=== PATIENT | female | born 1990 | race Two or more races ===

== ENCOUNTER 2018-08-03 13:55 | Emergency (ER) | payer SELFPAY ==
[~2018-08-03] VITALS: Ht 160 cm; Wt 64.0 kg
[~2018-08-03 13:55] MED LIST: CEPH500C PO; HYDR-2758 PO; IBUP-1060 PO; LABE200T4 PO; OMEP20CA9 PO; ONDA4TAB10 SL; OXYC-323 PO; PROM25TA10 PO; TRAM-48 PO
[2018-08-03 14:49] LABS: BILIRUBIN,URINE NEGATIVE (NEG); CLARITY,URINE CLEAR; COLOR,URINE YELLOW; NITRITE,URINE NEGATIVE (NEG); PH,URINE 6.5; PROTEIN,URINE NEGATIVE (NEG-TRACE); UROBILINOGEN,URINE 0.2 mg/dL (0.2 mg/dL)
[2018-08-03 14:56] LABS: BACTERIA,URINE FEW /HPF (0-FEW); RBC,URINE OCC /HPF (0-2); SQUAMOUS EPITHELIAL CELL,UR MANY /LPF; WBC,URINE OCC /HPF (0-4)
[2018-08-03] MEDS ORDERED: IOHEXOL 300 MG/ML 100ML VIAL. IV ONE (15:15)
[2018-08-03] MEDS ORDERED: LIDO:MAALOX 1:1 20 ML SINGLE DOSE. SWSW ONE (15:15)
[2018-08-03 15:20] LABS: BASO # 0.1 x10^3/uL (0.0-0.2); BASO % 0 % (0-3); EOS # 0.2 x10^3/uL (0.0-0.7); EOS % 2 % (0-3); HEMATOCRIT 41.3 % (36.0-47.0); HEMOGLOBIN 14.3 g/dL (12.0-15.5); LYMPH # 1.1 x10^3/uL (1.0-4.8); LYMPH % 8 % (24-48); MEAN CORPUSCULAR HEMOGLOBIN 31 pg (25-35); MEAN CORPUSCULAR HGB CONC 35 g/dL (31-37); MEAN CORPUSCULAR VOLUME 88 fL (79-100); MONO # 0.5 x10^3/uL (0.0-1.1); MONO % 4 % (0-9); NEUT # 11.2 x10^3uL (1.8-7.7); NEUT % 86 % (31-73); PLATELET COUNT 222 x10^3/uL (140-400); RED BLOOD COUNT 4.67 x10^6/uL (3.50-5.40); RED CELL DISTRIBUTION WIDTH 13.2 % (11.5-14.5); WHITE BLOOD COUNT 13.1 x10^3/uL (4.0-11.0)
[2018-08-03 15:28] LABS: CALCIUM 8.6 mg/dL (8.5-10.1); CREATININE 0.5 mg/dL (0.6-1.0); GFR 149.1; POTASSIUM 3.8 mmol/L (3.5-5.1)
[2018-08-03] MEDS ORDERED: CONTRAST GIVEN. MC PRN (15:30)
[2018-08-03 15:33] LABS: ALBUMIN 4.1 g/dL (3.4-5.0); ALBUMIN/GLOBULIN RATIO 1.1 (1.0-1.7); TOTAL PROTEIN 7.7 g/dL (6.4-8.2)
[2018-08-03 15:41] LABS: % BANDS 9 % (0-9); % EOS 5 % (0-5); % LYMPHS 9 % (24-48); % SEGS 77 % (35-66)
[2018-08-03 15:43] LABS: PLT ESTIMATE ADEQUATE (ADEQUATE)
--- NOTE | 2018-08-03 15:50 | EKG ---
[facility] [address] [place] [address] Test Date: 2018-08-03 Test Time: 15:35:30 Pat Name: ADDISON CROCKETT Department: Room: Gender: F Radio Personality: : 1990 Requested By: HERMINIA LEE Order Number: [id number] Reading MD: Measurements Intervals [place] Rate: 80 P: 49 [place]: 154 QRS: 59 QRSD: 92 T: 38 QT: 376 QTc: 437 Interpretive Statements SINUS RHYTHM NORMAL ECG No previous ECG available for comparison
--- NOTE | 2018-08-03 16:05 | PHYS DOC ---
Past Medical History Past Medical History: No Pertinent History, Pancreatitis Additional Past Medical Histor: high cholesterol Past Surgical History: Tubal ligation Alcohol Use: None Drug Use: None Adult General Chief Complaint Chief Complaint: ABDOMINAL PAIN HPI HPI 28-year-old female presents to emergency room for evaluation of diffuse upper abdominal pain. She reports symptoms started overnight. She had 2 episodes of emesis. She states the pain certainly epigastric area and radiates up to the center of her chest and across her upper abdomen. [facility] had a biopsy that was negative. At that time they took her off her omeprazole. She denies fevers. Denies shortness of breath. Cholecystectomy 5 months ago. Review of Systems Review of Systems Constitutional: Denies fever or chills [] Eyes: Denies change in visual acuity, redness, or eye pain [] HENT: Denies nasal congestion or sore throat [] Integument: Denies rash or skin lesions [] Neurologic: Denies headache, focal weakness or sensory changes [] Endocrine: Denies polyuria or polydipsia [] All other systems were reviewed and found to be within normal limits, except as documented in this note. Current Medications Current Medications Current Medications Medications (Trade) Dose Ordered Sig/Yoly Start Time Stop Time Status Last Admin Dose Admin Info (CONTRAST GIVEN -- Rx MONITORING) 1 each PRN DAILY PRN 08/03/18 15:30 08/05/18 15:29 Iohexol (Omnipaque 300 Mg/ml) 75 ml 1X ONCE 08/03/18 15:15 08/03/18 15:16 DC 08/03/18 15:15 75 ML Multi-Ingredient Mouthwash/Gargle (Gi Cocktail) 20 ml 1X ONCE 08/03/18 15:15 08/03/18 15:16 DC 08/03/18 15:28 20 ML Sodium Chloride 1,000 ml @ 1,000 mls/hr 1X ONCE 08/03/18 16:15 08/03/18 17:14 DC 08/03/18 16:23 1,000 MLS/HR Allergies Allergies Allergies Coded Allergies Type Severity Reaction Last Updated Verified No Known Drug Allergies 07/22/14 No Physical Exam Physical Exam Constitutional: Well developed, well nourished, TEARFUL, non-toxic appearance. [ ] Cardiovascular:Heart rate regular rhythm, no murmur [] Lungs & Thorax: Bilateral breath sounds clear to auscultation [] Abdomen: Bowel sounds normal, soft, UPPER ABD DIFFUSELY TENDER, no masses, no pulsatile masses. [] Skin: Warm, dry, no erythema, no rash. [] Extremities: No tenderness, no cyanosis, no clubbing, ROM intact, no edema. [] Neurologic: Alert and oriented X 3, normal motor function, normal sensory function, no focal deficits noted. [] Psychologic: Affect normal, judgement normal, mood normal. [] Current Patient Data Vital Signs Vital Signs Date Time Temp Pulse Resp B/P (MAP) Pulse Ox O2 Delivery O2 Flow Rate FiO2 08/03/18 14:10 99.9 88 14 124/68 (86) 98 Room Air 99.9 Lab Values Laboratory Tests Test 08/03/18 14:15 08/03/18 14:22 08/03/18 15:15 08/03/18 16:16 Urine Collection Type Unknown Urine Color Yellow Urine Clarity Clear Urine pH 6.5 Urine Specific [place] 1.010 Urine Protein Negative mg/dL (NEG-TRACE) Urine Glucose (UA) Negative mg/dL (NEG) Urine Ketones (Stick) Negative mg/dL (NEG) Urine Blood Negative (NEG) Urine Nitrite Negative (NEG) Urine Bilirubin Negative (NEG) Urine Urobilinogen Dipstick 0.2 mg/dL (0.2 mg/dL) Urine Leukocyte Esterase Negative (NEG) Urine RBC Occ /HPF (0-2) Urine WBC Occ /HPF (0-4) Urine Squamous Epithelial Cells Many /LPF Urine Bacteria Few /HPF (0-FEW) POC Urine HCG, Qualitative Hcg negative (Negative) White Blood Count 13.1 x10^3/uL (4.0-11.0) H Red Blood Count 4.67 x10^6/uL (3.50-5.40) Hemoglobin 14.3 g/dL (12.0-15.5) Hematocrit 41.3 % (36.0-47.0) Mean Corpuscular Volume 88 fL (79-100) Mean Corpuscular Hemoglobin 31 pg (25-35) Mean Corpuscular Hemoglobin Concent 35 g/dL (31-37) Red Cell Distribution Width 13.2 % (11.5-14.5) Platelet Count 222 x10^3/uL (140-400) Neutrophils (%) (Auto) 86 % (31-73) H Lymphocytes (%) (Auto) 8 % (24-48) L Monocytes (%) (Auto) 4 % (0-9) Eosinophils (%) (Auto) 2 % (0-3) Basophils (%) (Auto) 0 % (0-3) Neutrophils # (Auto) 11.2 x10^3uL (1.8-7.7) H Lymphocytes # (Auto) 1.1 x10^3/uL (1.0-4.8) Monocytes # (Auto) 0.5 x10^3/uL (0.0-1.1) Eosinophils # (Auto) 0.2 x10^3/uL (0.0-0.7) Basophils # (Auto) 0.1 x10^3/uL (0.0-0.2) Segmented Neutrophils % 77 % (35-66) H Band Neutrophils % 9 % (0-9) Lymphocytes % 9 % (24-48) L Eosinophils % 5 % (0-5) Platelet Estimate Adequate (ADEQUATE) Sodium Level 140 mmol/L (136-145) Potassium Level 3.8 mmol/L (3.5-5.1) Chloride Level 103 mmol/L (98-107) Carbon Dioxide Level 25 mmol/L (21-32) Anion Gap 12 (6-14) Blood Urea Nitrogen 10 mg/dL (7-20) Creatinine 0.5 mg/dL (0.6-1.0) L Estimated GFR (Cockcroft-Gault) 149.1 BUN/Creatinine Ratio 20 (6-20) Glucose Level 94 mg/dL (70-99) Calcium Level 8.6 mg/dL (8.5-10.1) Total Bilirubin 1.0 mg/dL (0.2-1.0) Aspartate Amino Transferase (AST) 36 U/L (15-37) Alanine Aminotransferase (ALT) 52 U/L (14-59) Alkaline Phosphatase 85 U/L (46-116) Total Protein 7.7 g/dL (6.4-8.2) Albumin 4.1 g/dL (3.4-5.0) Albumin/Globulin Ratio 1.1 (1.0-1.7) Lipase 91 U/L (73-393) POC Troponin I 0.00 ng/ml (<0.08) Laboratory Tests 08/03/18 15:15 Laboratory Tests 08/03/18 15:15 EKG EKG [EKG rate 81, normal sinus rhythm, no STEMI ] Radiology/Procedures Radiology/Procedures [PROCEDURE: CT ABD PELV W/ IV CONTRST ONLY EXAM: Abdomen and pelvis CT with intravenous contrast. HISTORY: Pain. TECHNIQUE: Computed tomographic images of the abdomen and pelvis were obtained following the administration of 75 cc Omnipaque 300 intravenous contrast. Multiplanar reformatting was performed. *One or more of the following individualized dose reduction techniques were utilized for this examination: 1. Automated exposure control. 2. Adjustment of the mA and/or kV according to patient size. 3. Use of iterative reconstruction technique. COMPARISON: 11/12/2016. FINDINGS: Evaluation of the lower thorax is unremarkable. The liver is upper normal in size. The gallbladder is surgically absent. There is common bile duct dilatation likely due to reservoir effect status post cholecystectomy. No obstructing lesion is seen at the level of the ampulla. The pancreas, spleen and adrenal glands are unremarkable. The kidneys are unremarkable. The appendix is normal in appearance. There is no abnormal bowel wall thickening or dilatation. The uterus is unremarkable. There are multiple bilateral ovarian follicles. There is a peripherally enhancing right ovarian cyst measuring 1.9 cm, likely an involuting or hemorrhagic cyst. There is no significant pelvic free fluid. There is no lymphadenopathy. There are calcified bilateral buttock granulomas. There is no suspicious osseous lesion. IMPRESSION: 1. 1.9 cm suspected involuting or hemorrhagic right ovarian cyst. 2. Mild common bile duct dilatation likely due to reservoir effect status post cystectomy. 3. Otherwise, relatively unremarkable abdomen and pelvis CT. Electronically signed by: Teresa Nguyen MD (08/03/2018 4:00 PM) [place] [id number] ]PROCEDURE: CHEST PA & LATERAL EXAM: Chest, 2 views. HISTORY: Chest pain. COMPARISON: 03/21/2015. FINDINGS: Frontal and lateral views of the chest are obtained. There is linear opacity within the right mid thorax. There is no consolidation, pleural effusion or pneumothorax. The heart is normal in size. IMPRESSION: Linear opacity within the right mid thorax likely due to atelectasis. The possibility of interstitial infiltrate is not excluded. Electronically signed by: Teresa Nguyen MD (08/03/2018 4:02 PM) [facility] [place] Course & Med Decision Making Course & Med Decision Making Pertinent Labs and Imaging studies reviewed. (See chart for details) [Signs stable, patient is afebrile and nontoxic in appearance. CT abdomen and pelvis is negative for acute pathology. Concern for developing pneumonia on chest x-ray, will start patient on azithromycin pack. She has had some intermittent cough. She does have close follow-up, has a GI doctor whom she will call to reschedule a follow-up appointment. EKG is normal sinus rhythm, cardiac enzymes are negative. Patient is stable for discharge home, strict return precautions discussed.] Dragon Disclaimer Dragon Disclaimer This electronic medical record was generated, in whole or in part, using a voice recognition dictation system. Departure Departure Impression: Primary Impression: Epigastric pain Disposition: 01 HOME, SELF-CARE Condition: STABLE Referrals: NO PCP (PCP) Patient Instructions: Abdominal Pain Scripts Azithromycin (AZITHROMYCIN PACKET) 1 Gm Packet 1 PACKET PO ONCE, #1 PACKET 0 Refills Prov: HERMINIA LEE APRN 08/03/18 HERMINIA LEE APRN Aug 03, 2018 16:05
[2018-08-03] MEDS ORDERED: IV NORMAL SALINE 1000ML BAG 1,000 ML IV ONE (16:15)
[2018-08-03 17:00] VITALS: BP 103/54
[2018-08-03] MEDS ORDERED: AZIT1PAC9 PO (17:15)
== END 2018-08-03 18:08 | disposition home or self-care (01) ==
LOC: ER 13:55
DX: R10.13 Epigastric pain (principal); R10.11 Right upper quadrant pain; R10.12 Left upper quadrant pain; E78.00 Pure hypercholesterolemia, unspecified; Z98.51 Tubal ligation status; Z90.49 Acquired absence of other specified parts of digestive tract
CPT/HCPCS: 36415; 71046; 74177; 80053; 81001; 81025; 83690; 84484; 85007; 85025; 93005; 96360; 96361; 99285; J7030; Q9967

== ENCOUNTER 2019-02-15 03:26 | Emergency (ER) | payer SELFPAY ==
[~2019-02-15] VITALS: Ht 152.4 cm; Wt 61.2 kg
[~2019-02-15 03:26] MED LIST changes: +AZIT1PAC9 PO; -HYDR-2758 PO; +HYDR-2761 PO; +OMEP20CA10 PO; -OMEP20CA9 PO; -OXYC-323 PO; +OXYC1TAB15 PO
[2019-02-15 03:30] VITALS: BP 135/66
[2019-02-15] MEDS ORDERED: ORPH100T PO (04:48)
[2019-02-15] MEDS ORDERED: HYDR-3164 PO (04:48)
[2019-02-15] MEDS ORDERED: LIDO700A39 TP (04:48)
[2019-02-15] MEDS ORDERED: PRED20TA PO (04:48)
--- NOTE | 2019-02-15 04:48 | PHYS DOC ---
Past Medical History Past Medical History: High Cholesterol, Pancreatitis Additional Past Medical Histor: high cholesterol Past Surgical History: Cholecystectomy, , Tubal ligation Alcohol Use: None Drug Use: None Adult General Chief Complaint Chief Complaint: BACK PAIN OR INJURY HPI HPI Patient is a 28 year old female who presents for evaluation of back pain. 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 Patient states that the pain is located in her bilateral lower back, is constant, sharp, and rated 10/10. Patient states that the pain is worse with movement and nothing alleviates the pain. Patient states that the pain is taking her breath away. Patient reports radiation of the pain down both of her legs. Patient denies bowel and bladder incontinence. Review of Systems Review of Systems Constitutional: Denies fever or chills. Eyes: Denies change in visual acuity, or eye pain. HENT: Denies nasal congestion or sore throat. Respiratory: Denies cough. Reports shortness of breath secondary to sharp pain. Cardiovascular: Denies chest pain and palpitations. GI: Denies abdominal pain, nausea, vomiting, diarrhea. : Denies dysuria or hematuria. Musculoskeletal: Denies joint pain. Reports back pain. Integument: Denies rash or skin lesions. Neurologic: Denies headache, focal weakness. Complete systems were reviewed and found to be within normal limits, except as documented in this note. Current Medications Current Medications Current Medications Medications (Trade) Dose Ordered Sig/Yoly Start Time Stop Time Status Last Admin Dose Admin Acetaminophen/ Hydrocodone Bitart (Lortab 5/325) 1 tab 1X ONCE 02/15/19 05:00 02/15/19 05:01 02/15/19 04:32 1 TAB Cyclobenzaprine HCl (Flexeril) 10 mg 1X ONCE 02/15/19 05:00 02/15/19 05:01 02/15/19 04:32 10 MG Dexamethasone (Decadron) 10 mg 1X ONCE 02/15/19 05:00 02/15/19 05:01 02/15/19 04:32 10 MG Ketorolac Tromethamine (Toradol 30mg Vial) 30 mg 1X ONCE 02/15/19 05:00 02/15/19 05:01 02/15/19 04:31 30 MG Lidocaine (Lidoderm) 1 patch 1X ONCE 02/15/19 05:00 4/3/19 05:01 Allergies Allergies Allergies Coded Allergies Type Severity Reaction Last Updated Verified No Known Drug Allergies 07/22/14 No Physical Exam Physical Exam Constitutional: Well developed, well nourished, in painful distress, crying during examination. HENT: Normocephalic, atraumatic,oropharynx moist. Eyes: PERRL, conjunctiva without erythema. Neck: Normal range of motion, no tenderness, supple. Cardiovascular: Heart rate regular rhythm, no murmur. Lungs & Thorax: Bilateral breath sounds clear to auscultation. Abdomen: Soft, no tenderness. Skin: Warm, dry, no rash. Back: Tenderness of bilateral paralumbar area on palpation. Decreased range of motion secondary to pain. Extremities: No tenderness, ROM intact. Neurologic: Alert and oriented X 3, no focal deficits noted. Sensation is intact. Psychologic: Affect normal. Speech normal. Current Patient Data Vital Signs Vital Signs Date Time Temp Pulse Resp B/P (MAP) Pulse Ox O2 Delivery O2 Flow Rate FiO2 02/15/19 04:32 98 Room Air 02/15/19 03:30 98.2 63 18 135/66 (89) 98.2 EKG EKG [] Radiology/Procedures Radiology/Procedures [] Course & Med Decision Making Course & Med Decision Making Patient is a 28 year old female who presents for evaluation of back pain. Imaging is not indicated at this time as patient did not sustain any trauma. Patient treated with a lidocaine patch, Ketorolac, Hydrocodone, Dexamethasone, and Cyclobenzaprine with improvement of pain. Patient stable for discharge with outpatient follow-up with PCP. Discussed findings and plan with patient and family, who acknowledge understanding and agreement. Dragon Disclaimer Dragon Disclaimer This electronic medical record was generated, in whole or in part, using a voice recognition dictation system. Departure Departure Impression: Primary Impression: Back pain Additional Impression: Sciatica Disposition: HOME, SELF-CARE Condition: STABLE Referrals: VANNESA CM DO (PCP) BELEM TATE MD Patient Instructions: Back Pain, Adult, [id number], Sciatica, [id number] Scripts Prednisone (PREDNISONE) 20 Mg Tablet 2 TAB PO DAILY, #8 TAB Start this medication tomorrow, 02/16/19 Prov: NELY CRUZ DO 02/15/19 Orphenadrine Citrate (ORPHENADRINE CITRATE) 100 Mg Tablet.er 100 MG PO BID, #14 Prov: NELY CRUZ DO 02/15/19 Hydrocodone/Apap 5-325 (NORCO 5-325 TABLET) 1 Each Tablet 1 TAB PO PRN Q6HRS PRN for PAIN, #14 TAB 0 Refills Prov: NELY CRUZ DO 02/15/19 Lidocaine (Lidocaine) 1 Each Adh..patch 1 EACH TP Q12HR, #10 PATCH Keep patch on for 12 hours then remove for 12 hours Prov: NELY CRUZ DO 02/15/19 Problem Qualifiers Primary Impression: Back pain Back pain location: low back pain Chronicity: acute Back pain laterality: bilateral Sciatica presence: with sciatica Sciatica laterality: bilateral sciatica Qualified Codes: M54.42 - Lumbago with sciatica, left side; M54.41 - Lumbago with sciatica, right side Additional Impression: Sciatica Laterality: bilateral Qualified Codes: M54.31 - Sciatica, right side; M54.32 - Sciatica, left side NELY CRUZ DO Feb 15, 2019 04:48
[2019-02-15] MEDS ORDERED: KETOROLAC 30 MG/ML VIAL. IM ONE (05:00)
[2019-02-15] MEDS ORDERED: LIDOCAINE (700MG/PATCH) PATCH. TD ONE (05:00)
[2019-02-15] MEDS ORDERED: CYCLOBENZAPRINE 10 MG TABLET. PO ONE (05:00)
[2019-02-15] MEDS ORDERED: DEXAMETHASONE 4 MG TABLET PO ONE (05:00)
[2019-02-15] MEDS ORDERED: HYDROcodone/APAP 5/325MG 1 TAB TABLET PO ONE (05:00)
== END 2019-02-15 05:10 | disposition home or self-care (01) ==
LOC: ER 03:26
DX: M54.41 Lumbago with sciatica, right side (principal); M54.42 Lumbago with sciatica, left side; E78.00 Pure hypercholesterolemia, unspecified; Z90.49 Acquired absence of other specified parts of digestive tract; Z98.890 Other specified postprocedural states; Z98.51 Tubal ligation status
CPT/HCPCS: 96372; 99284; J1885; J8540

== ENCOUNTER 2019-12-15 00:08 | Emergency (ER) | payer SELFPAY ==
[~2019-12-15] VITALS: Ht 165.1 cm; Wt 63.6 kg
[~2019-12-15 00:08] MED LIST changes: +HYDR-3164 PO; +LIDO700A21 TP; -OMEP20CA10 PO; +OMEP20CA16 PO; +ORPH100T PO; +PRED20TA PO
[2019-12-15 00:18] VITALS: BP 119/71
[2019-12-15] MEDS ORDERED: DEXAMETHASONE SOD PHOS 20 MG/5 ML VIAL. PO ONE (01:00)
[2019-12-15] MEDS ORDERED: NAPR-514 PO (01:00)
--- NOTE | 2019-12-15 01:02 | PHYS DOC ---
Past Medical History Past Medical History: High Cholesterol, Pancreatitis Additional Past Medical Histor: high cholesterol (SILVANA GUILLEN APRN) Past Surgical History: Cholecystectomy, , Tubal ligation (SILVANA GUILLEN APRN) Alcohol Use: None Drug Use: None (SILVANA GUILLEN APRN) Attending Signature I have participated in the care of this patient and I have reviewed and agree with all pertinent clinical information above including history, exam, and recommendations. (HUSAM SEALS MD) Adult General Chief Complaint Chief Complaint: BACK PAIN OR INJURY HPI HPI Patient is a 29 year old female, accompanied by her , who presents to the emergency department with complaints of nasal congestion, chest congestion, chills, headache, and fatigue for the last 3 days. Patient states that it hurts inside of her lungs when she takes a deep breath. She denies any fever or cough. Patient also denies any nausea, vomiting, diarrhea, or abdominal pain. She currently rates her pain 8 out of 10 on the pain scale and reports that it is aching sensation inside of her head, denies any alleviating factors. Patient denies any known recent ill contacts. The [employer] creative strategist line was used to speak with the patient as she is Georgian speaking only. All other ROS is neg unless otherwise noted in HPI. (SILVANA GUILLEN APRN) Review of Systems Review of Systems See Above (SILVANA GUILLEN APRN) Current Medications Current Medications Current Medications Medications (Trade) Dose Ordered Sig/Yoly Start Time Stop Time Status Last Admin Dose Admin Dexamethasone Sodium Phosphate (Decadron) 10 mg 1X ONCE 12/15/19 01:00 12/15/19 01:01 DC 12/15/19 00:52 10 MG (HUSAM SEALS MD) Allergies Allergies Allergies Coded Allergies Type Severity Reaction Last Updated Verified No Known Drug Allergies 07/22/14 No (HUSAM SEALS MD) Physical Exam Physical Exam See Above Constitutional: Well developed, well nourished, no acute distress, ill appearance HENT: Normocephalic, atraumatic, bilateral external ears normal, bilateral TMs normal, posterior pharynx normal oropharynx moist, nose congested with erythema and edema of the nasal turbinates bilaterally Eyes: PERRLA, conjunctiva injected bilaterally, no discharge. [] Neck: Normal range of motion, no stridor. [] Cardiovascular:Heart rate regular rhythm, no murmur [] Lungs & Thorax: Bilateral breath sounds clear to auscultation, Respirations even and unlabored, no retractions, no respiratory distress Skin: Warm, dry, no erythema, no rash. [] Back: No tenderness Extremities: No cyanosis, ROM intact Neurologic: Alert and oriented X 3, no focal deficits noted. [] Psychologic: Affect normal, judgement normal, mood normal. (SILVANA GUILLEN APRN) Current Patient Data Vital Signs Vital Signs Date Time Temp Pulse Resp B/P (MAP) Pulse Ox O2 Delivery O2 Flow Rate FiO2 12/15/19 00:18 98.7 67 16 119/71 (87) 99 Room Air 98.7 (HUSAM SEALS MD) EKG EKG [] (SILVANA GUILLEN APRN) Radiology/Procedures Radiology/Procedures [] (SILVANA GUILLEN APRN) Course & Med Decision Making Course & Med Decision Making Pertinent Labs and Imaging studies reviewed. (See chart for details) [] (SILVANA GUILLEN APRN) Dragon Disclaimer Dragon Disclaimer This electronic medical record was generated, in whole or in part, using a voice recognition dictation system. (SILVANA GUILLEN APRN) Departure Departure Impression: Primary Impression: Influenza-like illness Disposition: HOME, SELF-CARE Condition: STABLE Referrals: VANNESA CM DO (PCP) Patient Instructions: Influenza, Adult, [id number] Additional Instructions: Tylenol as needed for fever. Increase clear fluids and rest. Diet as tolerated. Recommend use of [id number] flu medications as needed for relief of your symptoms. Follow up with your primary care doctor if symptoms persist, return to the ER symptoms worsen. Scripts Naproxen (NAPROXEN) 500 Mg Tablet 1 TAB PO BID PRN for PAIN for 10 Days, #20 TAB 0 Refills Prov: SILVANA GUILLEN APRN 12/15/19 SILVANA GUILLEN APRN Dec 15, 2019 01:02 HUSAM SEALS MD Dec 15, 2019 01:49
== END 2019-12-15 01:10 | disposition home or self-care (01) ==
LOC: ER 00:08
DX: R09.81 Nasal congestion (principal); R09.89 Other specified symptoms and signs involving the circulatory and respiratory systems; R51 Headache; R68.83 Chills (without fever); R53.83 Other fatigue; E78.00 Pure hypercholesterolemia, unspecified; L53.9 Erythematous condition, unspecified; R60.9 Edema, unspecified; Z90.49 Acquired absence of other specified parts of digestive tract; Z98.51 Tubal ligation status; Z98.890 Other specified postprocedural states
CPT/HCPCS: 99282; J1100

== ENCOUNTER 2021-08-12 17:46 | Emergency (ER) | payer SELFPAY ==
[~2021-08-12] VITALS: Ht 152.4 cm; Wt 67.2 kg
[~2021-08-12 17:46] MED LIST changes: +NAPR-514 PO
--- NOTE | 2021-08-12 18:38 | PHYS DOC ---
Past Medical History Past Medical History: High Cholesterol, Pancreatitis Additional Past Medical Histor: high cholesterol Past Surgical History: Cholecystectomy, , Tubal ligation Smoking Status: Never Smoker Alcohol Use: None Drug Use: None General Adult EDM: Chief Complaint: CHEST PAIN HPI: HPI: Patient is a 31 year old female with history of depression who presents with chest pain, shortness of breath, headache, nausea. Symptoms all began this morning and have been persistent throughout the day. Denies sick contacts. Is not vaccinated for COVID-19. She is also noticed some left lower extremity swelling over the past 2 days that predated these other symptoms. Denies any pertinent medical history. Is only on an antidepressant medication. No oral contraceptives or estrogen containing medications. No history of DVT/PE. Chest pain is described as makes it sharp and pressure, with tingling radiating to the left arm. Has been constant since this morning. No identified exacerbating or alleviating factors Review of Systems: Review of Systems: Constitutional: Denies fever or chills. [] Eyes: Denies change in visual acuity. [] HENT: Denies nasal congestion or sore throat. [] Respiratory: Reports shortness of breath. [] Cardiovascular: Reports chest pain and left lower extremity edema. [] GI: Reports nausea and vomiting. Denies abdominal pain, bloody stools or diarrhea. [] : Denies dysuria. [] Musculoskeletal: Denies back pain or joint pain. [] Integument: Denies rash. [] Neurologic: Denies headache, focal weakness or sensory changes. [] Endocrine: Denies polyuria or polydipsia. [] Lymphatic: Denies swollen glands. [] Psychiatric: Denies depression or anxiety. [] Heart Score: C/O Chest Pain: Yes HEART Score for Chest Pain: HEART Score for Chest Pain Response (Comments) Value History Slighlty/Non-Suspicious 0 ECG Normal 0 Age < 45 0 Risk Factors 1 or 2 Risk Factors 1 Total 1 Risk Factors: Risk Factors: DM, Current or recent (<one month) smoker, HTN, HLP, family history of CAD, obesity. Risk Scores: Score 0 - 3: 2.5% MACE over next 6 weeks - Discharge Home Score 4 - 6: 20.3% MACE over next 6 weeks - Admit for Clinical Observation Score 7 - 10: 72.7% MACE over next 6 weeks - Early Invasive Strategies Allergies: Allergies: Allergies Coded Allergies Type Severity Reaction Last Updated Verified No Known Drug Allergies 07/22/14 No Physical Exam: PE: Constitutional: Well developed, well nourished, no acute distress, non-toxic appearance. [] HENT: Normocephalic, atraumatic, bilateral external ears normal, oropharynx moist, no oral exudates, nose normal. [] Eyes: PERRLA, EOMI, conjunctiva normal, no discharge. [] Neck: Normal range of motion, no tenderness, supple, no stridor. [] Cardiovascular:Heart rate regular rhythm, no murmur [] Lungs & Thorax: Bilateral breath sounds clear to auscultation [] Abdomen: Bowel sounds normal, soft, no tenderness, no masses, no pulsatile masses. [] Skin: Warm, dry, no erythema, no rash. [] Back: No tenderness, no CVA tenderness. [] Extremities: Left lower extremity appears slightly larger than the right. Distal pulses intact. [] Neurologic: Alert and oriented X 3, normal motor function, normal sensory function, no focal deficits noted. [] Psychologic: Affect normal, judgement normal, mood normal. [] Current Patient Data: Vital Signs: Vital Signs Date Time Temp Pulse Resp B/P (MAP) Pulse Ox O2 Delivery O2 Flow Rate FiO2 08/12/21 17:55 98.4 74 17 147/77 (100) 100 98.4 EKG: EKG: Sinus rhythm. Rate 75. Normal axis. Normal intervals. No Q waves, T wave inversion, or ST elevation/depression. [] Radiology/Procedures: Radiology/Procedures: [] Impression: [facility] [address] [place], [place] [id number] IMAGING REPORT Signed PATIENT: ARIANA CROCKETT DACCOUNT: [id number] : 1990 LOCATION: ER AGE: 31 SEX: F EXAM STATUS: REG ER ORD. PHYSICIAN: DIOMEDES CABA MD REASON: SWELLING PROCEDURE: VENOUS LOWER EXTREMITY LEFT US DPLX VENOUS EXTREMITY LOWER LT History: Reason: SWELLING / Spl. Instructions: / History: Comparison: None. Technique: Multiple longitudinal and transverse high resolution real-time images of the venous system of left lower extremity were obtained with color and Doppler sampling. Findings: The common femoral, superficial femoral, popliteal and proximal calf veins are all patent and demonstrate normal flow and compressibility. Normal respiratory phasicity and augmentation is present. Impression: 1. No evidence of deep vein thrombosis. Electronically signed by: Gary East DO (08/12/2021 7:32 PM) [facility] DICTATED and SIGNED BY: GARY EAST DO DATE: 08/12/[id number] 0 [facility] [address] [place] [address] IMAGING REPORT Signed PATIENT: ARIANA CROCKETT DACCOUNT: [id number] : 1990 LOCATION: ER AGE: 31 SEX: F EXAM STATUS: REG ER ORD. PHYSICIAN: DIOMEDES CABA MD REASON: SOB, CHEST PAIN PROCEDURE: CHEST AP ONLY XR CHEST 1V History: Reason: SOB, CHEST PAIN / Spl. Instructions: / History: Comparison: August 03, 2018 Findings: No consolidation or pleural effusion. Normal heart size. No pneumothorax. Impression: 1. No acute cardiopulmonary process. Electronically signed by: Gary East DO (08/12/2021 7:50 PM) [facility] DICTATED and SIGNED BY: GARY EAST DO DATE: 08/12/[id number] 0 Course & Med Decision Making: Course & Med Decision Making Pertinent Labs and Imaging studies reviewed. (See chart for details) Patient a 31-year-old female who presents with onset of headache, shortness of breath, chest pain, nausea/vomiting since this morning with preceding left lower extremity edema x2 days. On arrival is afebrile, hemodynamically stable. No acute distress. Oxygenating well on room air. Unable to apply PERC rule due to lower extremity swelling. Dimer ordered to exclude PE. Lower extremity ultrasound ordered. We will obtain chest x-ray for evidence of pneumonia, spontaneous pneumothorax, or other pulmonary etiology for symptoms. She is not vaccinated, will be a Covid PUI. Rapid and PCR test sent. EKG is nonischemic, and has HEART score of 1, feel this is less likely to be related to coronary artery disease. We will send a single troponin, and given duration of symptoms should be sufficient to rule out MT. 1838 CBC, CMP, troponin all reassuring. Dimer negative. No further work-up for PE. Covid test is pending. Chest x-ray without acute process. Her vital signs have remained stable during her stay. Feel that she is safe for discharge at this time with return precautions. [address] Disclaimer: [address] Disclaimer: This electronic medical record was generated, in whole or in part, using a voice recognition dictation system. Departure Departure Impression: Primary Impression: Suspected 2019 novel coronavirus infection Additional Impression: Chest pain Disposition: HOME / SELF CARE / HOMELESS Condition: STABLE Referrals: VANNESA CM DO (PCP) Additional Instructions: Your Covid test is pending. Please self isolate until you know the results of this test. If it is positive you will need to isolate for 10 days since symptom onset, and stay in isolation until you have at least 3 days without fever and improving symptoms. Your chest x-ray, EKG, labs all looked reassuring. Please follow-up with your primary care doctor to ensure that your symptoms continue to improve. If your symptoms worsen including worsening shortness of breath please return to the emergency department for reevaluation. DIOMEDES CABA MD Aug 12, 2021 18:38
[2021-08-12 18:39] LABS: BASO # 0.1 x10^3/uL (0.0-0.2); BASO % 1 % (0-3); EOS # 0.3 x10^3/uL (0.0-0.7); EOS % 5 % (0-3); HEMATOCRIT 39.7 % (36.0-47.0); HEMOGLOBIN 13.8 g/dL (12.0-15.5); LYMPH # 2.2 x10^3/uL (1.0-4.8); LYMPH % 35 % (24-48); MEAN CORPUSCULAR HEMOGLOBIN 30 pg (25-35); MEAN CORPUSCULAR HGB CONC 35 g/dL (31-37); MEAN CORPUSCULAR VOLUME 86 fL (79-100); MONO # 0.4 x10^3/uL (0.0-1.1); MONO % 6 % (0-9); NEUT # 3.4 x10^3/uL (1.8-7.7); NEUT % 53 % (31-73); PLATELET COUNT 271 x10^3/uL (140-400); RED BLOOD COUNT 4.59 x10^6/uL (3.50-5.40); RED CELL DISTRIBUTION WIDTH 13.3 % (11.5-14.5); WHITE BLOOD COUNT 6.5 x10^3/uL (4.0-11.0)
[2021-08-12 18:56] LABS: CALCIUM 8.8 mg/dL (8.5-10.1); CREATININE 0.6 mg/dL (0.6-1.0); GFR 118.2
[2021-08-12 19:01] LABS: ALBUMIN 3.9 g/dL (3.4-5.0); TOTAL BILIRUBIN 0.3 mg/dL (0.2-1.0); TOTAL PROTEIN 7.8 g/dL (6.4-8.2)
[2021-08-12] MEDS ORDERED: IBUPROFEN 200 MG TABLET. PO ONE (19:30)
[2021-08-12] MEDS ORDERED: ACETAMINOPHEN 500 MG TABLET PO ONE (19:30)
--- NOTE | 2021-08-12 19:34 | RAD ---
US DPLX VENOUS EXTREMITY LOWER LT History: Reason: SWELLING / Spl. Instructions: / History: Comparison: None. Technique: Multiple longitudinal and transverse high resolution real-time images of the venous system of left lower extremity were obtained with color and Doppler sampling. Findings: The common femoral, superficial femoral, popliteal and proximal calf veins are all patent and demonst rate normal flow and compressibility. Normal respiratory phasicity and augmentation is present. Impression: 1. No evidence of deep vein thrombosis. Electronically signed by: Gary East DO (08/12/2021 7:32 PM) [facility]
--- NOTE | 2021-08-12 19:53 | RAD ---
XR CHEST 1V History: Reason: SOB, CHEST PAIN / Spl. Instructions: / History: Comparison: August 03, 2018 Findings: No consolidation or pleural effusion. Normal heart size. No pneumothorax. Impression: 1. No acute cardiopulmonary process. Electronically signed by: Gary East DO (08/12/2021 7:50 PM) [facility]
[2021-08-12 20:32] VITALS: BP 147/90
--- NOTE | 2021-08-13 15:34 | NUR ---
IP: Patient notified of negative COVID19 test result. Verbalized understanding.
== END 2021-08-12 21:20 | disposition home or self-care (01) ==
LOC: ER 17:46
DX: R07.89 Other chest pain (principal); Z20.822 Contact with and (suspected) exposure to COVID-19; R06.02 Shortness of breath; R51.9 Headache, unspecified; E78.00 Pure hypercholesterolemia, unspecified
CPT/HCPCS: 36415; 71045; 80053; 81025; 84484; 85025; 85379; 87426; 93971; 99285; U0003; U0005